=== PATIENT | female | born 1995 | race Caucasian/White ===

== ENCOUNTER 2018-06-08 19:28 | Emergency (ER) | payer OTHER ==
[2018-06-08 20:20] LABS: APPEARANCE,URINE Cloudy (CLEAR); BILIRUBIN,URINE Negative (NEGATIVE); GLUCOSE, URINE (UA) Negative (NEGATIVE); KETONES,URINE Negative (NEGATIVE); LEUKOCYTE ESTERASE ,URINE Large (NEGATIVE); NITRATE,URINE Negative (NEGATIVE); OCCULT BLOOD,URINE Large (NEGATIVE); PH,URINE 7.5 (5.0-8.0); PROTEIN,URINE POS 1+ (NEGATIVE); UROBILINOGEN,URINE 0.2 mg/dL (0.2-1.0)
[2018-06-08] MEDS ORDERED: ACETAMINOPHEN EXTRA STRENGTH 500 MG TABLET ONE (20:25)
[2018-06-08 20:26] LABS: HCG,QUAL RESULT NEGATIVE (NEGATIVE)
[2018-06-08 20:27] LABS: COLOR,URINE YELLOW (YELLOW)
[2018-06-08 20:29] LABS: BACTERIA,URINE Few /HPF (None Seen); RBC,URINE None Seen /HPF (0-1); WBC,URINE 51-100 /HPF (0-1)
== END 2018-06-08 20:37 | disposition home or self-care (01) ==
LOC: EDH 19:28
DX: N39.0 Urinary tract infection, site not specified (principal); Z88.0 Allergy status to penicillin
CPT/HCPCS: 81001; 81025